=== PATIENT | male | born 1965 | race African-American/Black ===

== ENCOUNTER 2017-08-10 17:43 | Emergency (ER) | payer OTHER ==
[2017-08-10 17:54] VITALS: TEMP 37.2
[2017-08-10] MEDS ORDERED: ALBUT/IPRATROP 3MG/0.5MG NEB 3 ML VIAL INH STA (17:55)
--- NOTE | 2017-08-10 18:03 | EMERGENCY ROOM VISIT NOTE ---
History Report prepared by Shankar: Alis Covington Under the Supervision of: Dr. Berlin Fowler D.O. First contact with patient: 17:51 Chief Complaint: CHEST PAIN Stated Complaint: CHEST PAIN History of Present Illness The patient is a 52 year old male who presents to the Emergency Room with complaints of persistent chest pain that started prior to arrival. He is accompanied by a senior commercial loan officer from the senior living where he resides. He reports he was asleep and woke up with sharp left sided chest pain. Deep inspiration worsens his discomfort. He has also experienced a productive cough. He denies any hemoptysis. The patient states he experienced flu symptoms several weeks ago. He denies any recent fevers or chills. He has experienced no unusual leg pain or swelling. He is a current smoker. He states the only daily medications he takes are for a history of diabetes. 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 A total of 10 systems reviewed and were otherwise negative. Past Medical & Surgical Medical Problems: (1) Diabetes mellitus Social History Smoking Status: Current Every Day Smoker Alcohol Use: none Drug Use: none Marital Status: single Housing Status: other (Longterm) Occupation Status: unemployed Current/Historical Medications Scheduled Aspirin (Aspirin Ec), 81 MG PO DAILY Enalapril (Vasotec), 10 MG PO DAILY Insulin Glargine (Lantus), 30 UNITS SC HS Insulin Human Regular (Humulin R), 1 DOSE SC BID Metformin Hcl (Glucophage), 1,000 MG PO BID Mirtazapine (Remeron), 30 MG PO HS Pravastatin Sodium (Pravachol), 40 MG PO QPM Sertraline (Zoloft), 200 MG PO HS Allergies Coded Allergies: No Known Allergies (Unverified , 08/10/17) Physical Exam Vital Signs Date Time Temp Pulse Resp B/P (MAP) Pulse Ox O2 Delivery O2 Flow Rate FiO2 08/10/17 21:43 78 20 132/81 98 Room Air 08/10/17 20:24 95 Nasal Cannula 2.0 08/10/17 20:15 79 20 129/55 89 Room Air 08/10/17 19:33 85 20 136/65 93 Room Air 08/10/17 18:46 89 20 137/68 95 Room Air 08/10/17 18:17 83 08/10/17 17:54 37.2 87 20 94/65 94 Room Air 08/10/17 17:54 94 Room Air 08/10/17 17:54 94 Room Air Physical Exam GENERAL: Patient is awake, alert, somewhat anxious and uncomfortable appearing EYES: The conjunctivae are clear. The pupils are round and reactive. EARS, NOSE, MOUTH AND THROAT: The nose is without any evidence of any deformity. Mucous membranes are moist tongue is midline NECK: The neck is nontender and supple. RESPIRATORY: Splinting respirations noted, no definite rails, rhonchi or wheezing. CARDIOVASCULAR: Regular rate and rhythm noted there no murmurs rubs or gallops normal S1 normal S2 GASTROINTESTINAL: The abdomen is soft. Bowel sounds are present in all quadrants. Abdomen is nontender MUSCULOSKELETAL/EXTREMITIES: Patient was tender over the left lateral rib cage, no crepitus was appreciated. There is no evidence of gross deformity full range of motion is noted in the hips and shoulders SKIN: There is no obvious evidence of any rash. There are no petechiae, pallor or cyanosis noted. NEUROLOGIC: Patient is awake alert and oriented x3 Medical Decision & Procedures ER Provider Diagnostic Interpretation: Radiology results as stated below per my review and radiologist interpretation: CHEST ONE VIEW PORTABLE HISTORY: 52 years-old Male CHEST PAIN acute atypical chest pain COMPARISON: None available TECHNIQUE: Portable upright AP view of the chest FINDINGS: Cardiac silhouette is moderately enlarged. No pneumothorax. Pulmonary vascular congestion is noted with hazy perihilar and bibasilar opacities. No large pleural effusion. Bones of the chest appear grossly intact. Degenerative changes are seen within the shoulders. IMPRESSION: Cardiomegaly with hazy perihilar and bibasilar opacities suggesting asymmetric pulmonary edema or pneumonia. The above report was generated using voice recognition software. It may contain grammatical, syntax or spelling errors. Electronically signed by: Francisco Gonzalez M.D. 08/10/2017 6:29 PM Radiology results as stated below per my review and radiologist interpretation: (CHEST FOR PE) ANGIO WITH CT DOSE: 629.35 mGy.cm HISTORY: 52 years-old Male presents with acute atypical chest pain TECHNIQUE: Multiple CTA images of the chest were obtained after the intravenous administration of 94 ml Optiray 320. Coronal and sagittal MIPS were obtained from the axial data set and were submitted for review. A dose lowering technique was utilized adhering to the principles of ALARA. COMPARISON: Chest radiograph of same day. FINDINGS: CTA: Mild multichamber cardiac enlargement. Coronary arterial calcifications are noted. Thoracic aorta is normal in caliber without aneurysm or dissection. Note is made of a bovine aortic arch. Mild mixed plaquing of the aorta. There is suboptimal opacification of the pulmonary arterial tree secondary to contrast bolus timing. The lobar, segmental and subsegmental branches are not well seen. Study is also limited secondary to respiratory motion. No central pulmonary embolus identified. CT CHEST: No dominant thyroid nodule. Mild mediastinal and hilar adenopathy. Mildly prominent AP window lymph node measures 2.1 x 0.9 cm. Enlarged right hilar lymph node measures 1.5 x 1.3 cm. Mildly prominent subcarinal lymph node measures 1.9 x 0.9 cm. There is no pneumothorax or pleural effusion. Patchy consolidative and groundglass opacities are present within the left upper lobe, lingula and right middle lobe. Dependent subsegmental groundglass and linear consolidative opacities of the lung bases favor atelectasis. Centrilobular opacities also noted within these distributions. Pleural-based 5 mm solid pulmonary nodule seen within the right upper lobe, image 196 series 4. Mild centrilobular emphysema with an upper lung zone predominant distribution. Central airways are patent. Mild layering secretions are noted within the bronchus intermedius. Indeterminate 9 mm soft tissue attenuating lesion of the right adrenal gland. Mild symmetric bilateral gynecomastia. Bones appear intact. Mild endplate spurring of the spine. IMPRESSION: 1. Limited evaluation of the pulmonary arterial tree as above without evidence of central pulmonary embolus. No acute aortic pathology. 2. Patchy centrilobular, consolidative and groundglass opacities throughout the left upper lobe, lingula and right middle lobe suggest multifocal pneumonia. Opacities of the lung bases favor atelectasis. Follow-up imaging to document resolution is recommended. 3. Mild mediastinal and hilar adenopathy, likely reactive. 4. Mild upper lobe predominant centrilobular emphysema. 5. Indeterminate 9 mm soft tissue attenuating lesion of the right adrenal gland. 6. Pleural based 5 mm noncalcified pulmonary nodule of the right upper lobe. Please refer to below summary of Fleischner criteria recommendations for follow-up of incidental CT nodules (Belen Thapa, Guidelines for management of small pulmonary nodules detected on CT scans: A statement from the Fleischner Society, Radiology 237: [phone].) SOLID NODULES Solitary nodule size: <6 mm * Low risk patients: no follow-up needed * high risk patients: optional CT at 12 months Note: newly detected indeterminate nodule in persons 35 years of age or older. * Low risk patients: minimal or absent history of smoking and/or other known risk factors * high risk patients: history of smoking or of other known risk factors (e.g. first degree relative with lung cancer, or exposure to asbestos, radon, uranium) * if a nodule up to 8 mm is partly solid or is ground glass further follow-up is required after 24 months to exclude possible slow growing adenocarcinoma (HERMINIO) The above report was generated using voice recognition software. It may contain grammatical, syntax or spelling errors. Electronically signed by: Francisco Gonzalez M.D. 08/10/2017 8:31 PM Laboratory Results 08/10/17 18:00 Red Blood Count 4.57, Mean Corpuscular Volume 83.2, Mean Corpuscular Hemoglobin 29.1, Mean Corpuscular Hemoglobin Concent 35.0, Mean Platelet Volume 10.7, Neutrophils (%) (Auto) 73.8, Lymphocytes (%) (Auto) 11.6, Monocytes (%) (Auto) 12.9, Eosinophils (%) (Auto) 1.2, Basophils (%) (Auto) 0.2, Neutrophils # (Auto ) 8.71, Lymphocytes # (Auto) 1.37, Monocytes # (Auto) 1.52, Eosinophils # (Auto ) 0.14, Basophils # (Auto) 0.02 08/10/17 18:00 Test 08/10/17 18:00 08/10/17 21:09 08/10/17 21:55 White Blood Count 11.80 K/uL (4.8-10.8) Red Blood Count 4.57 M/uL (4.7-6.1) Hemoglobin 13.3 g/dL (14.0-18.0) Hematocrit 38.0 % (42-52) Mean Corpuscular Volume 83.2 fL (80-100) Mean Corpuscular Hemoglobin 29.1 pg (25-34) Mean Corpuscular Hemoglobin Concent 35.0 g/dl (32-36) Platelet Count 267 K/uL (130-400) Mean Platelet Volume 10.7 fL (7.4-10.4) Neutrophils (%) (Auto) 73.8 % Lymphocytes (%) (Auto) 11.6 % Monocytes (%) (Auto) 12.9 % Eosinophils (%) (Auto) 1.2 % Basophils (%) (Auto) 0.2 % Neutrophils # (Auto) 8.71 K/uL (1.4-6.5) Lymphocytes # (Auto) 1.37 K/uL (1.2-3.4) Monocytes # (Auto) 1.52 K/uL (0.11-0.59) Eosinophils # (Auto) 0.14 K/uL (0-0.5) Basophils # (Auto) 0.02 K/uL (0-0.2) RDW Standard Deviation 39.0 fL (36.4-46.3) RDW Coefficient of Variation 12.9 % (11.5-14.5) Immature Granulocyte % (Auto) 0.3 % Immature Granulocyte # (Auto) 0.04 K/uL (0.00-0.02) Prothrombin Time 10.9 SECONDS (9.0-12.0) Prothromb Time International Ratio 1.0 (0.9-1.1) Activated Partial Thromboplast Time 29.9 SECONDS (21.0-31.0) Partial Thromboplastin Ratio 1.2 Anion Gap 7.0 mmol/L (3-11) Estimated GFR () 74.6 Estimated GFR (Non- 64.4 BUN/Creatinine Ratio 12.0 (10-20) Calcium Level 9.1 mg/dl (8.5-10.1) Total Bilirubin 0.4 mg/dl (0.2-1) Direct Bilirubin 0.1 mg/dl (0-0.2) Aspartate Amino Transf (AST/SGOT) 25 U/L (15-37) Alanine Aminotransferase (ALT/SGPT) 38 U/L (12-78) Alkaline Phosphatase 95 U/L (45-117) Total Creatine Kinase 633 U/L (39-308) Creatine Kinase MB 2.6 ng/ml (0.5-3.6) Creatine Kinase MB Ratio 0.4 (0-3.0) Pro-B-Type Natriuretic Peptide 54 pg/ml (0-900) Total Protein 8.3 gm/dl (6.4-8.2) Albumin 3.1 gm/dl (3.4-5.0) Lipase 130 U/L (73-393) Bedside Lactic Acid Venous 1.21 mmol/L (0.90-1.70) Laboratory results per my review. Medications Administered Medications (Trade) Dose Ordered Sig/Sienna Route Start Time Stop Time Status Last Admin Dose Admin Fentanyl Citrate (Fentanyl Inj) 50 mcg Q15M PRN IV 08/10/17 18:00 08/24/17 17:59 08/10/17 19:39 50 MCG Albuterol/ Ipratropium (Duoneb) 3 ml NOW STAT INH 08/10/17 17:55 08/10/17 17:56 DC 08/10/17 18:33 3 ML Levofloxacin (Levaquin / D5W) 750 mg NOW ONCE IV 08/10/17 20:45 08/10/17 20:46 DC 08/10/17 21:14 750 MG Sodium Chloride 1,000 ml @ 999 mls/hr Q1H1M STAT IV 08/10/17 20:35 08/10/17 21:35 DC 08/10/17 21:14 999 MLS/HR ECG Indication: chest pain Rate (beats per minute): 84 Rhythm: normal sinus Findings: no ectopy, other (no acute ST segments) ED Course 1753: The patient was evaluated in room B10. A complete history and physical examination were performed. 1754: Duoneb 2 ml INH. 1800: Fentanyl 50 mcg IV. 2034: NSS 1000 ml @ 999 mls/hr IV. 2039: I reevaluated the patient. He is resting comfortably. I discussed my recommendation he remain in the hospital for further evaluation and management and he verbalized complete understanding and agreement. 2044: Levaquin 750 mg IV. 2044: I discussed the patients case with Dr. Holman, [facility] Hospitalist. The patient will be further evaluated. Medical Decision Prior records/ancillary studies reviewed. Triage Nursing notes reviewed. The patient's history was concerning for chest pain. Differential diagnosis: Etiologies such as cardiac ischemia, aortic dissection, pulmonary embolism, pneumonia, pneumothorax, musculoskeletal, infections, pericarditis, myocarditis , esophageal rupture, gastrointestinal, as well as others were entertained. The patient is a 52-year-old male who presented to emergency department for an evaluation of chest pain. The patient had reproducible left-sided chest pain. He states that he had upper respiratory symptoms last week including cough and malaise. The patient had reproducible left-sided pain I thought initially this could be related to chest wall pain from his recent upper rest for infection. Chest x-ray was consistent with possible pneumonia versus pulmonary edema. For this reason further laboratory and radiographic studies were obtained including an EKG as well as CT the chest. CT was obtained to rule out pulmonary embolism but revealed bilateral pneumonia. Given the patient's past medical history as well as his smoking history I felt that he may do better with IV antibiotics and inpatient management. The patient was treated with IV antibiotics and IV pain medication. I discussed the patient's laboratory and radiographic studies with him. I discussed his case with the on-call [facility] hospitalist. They have agreed to evaluate the patient in the emergency department for further management and disposition. Medication Reconcilliation Current Medication List: was personally reviewed by me Blood Pressure Screening Patient's blood pressure: Normal blood pressure Consults Time Called: 2041 Consulting Physician: Dr. Holman [facility] Hospitalist Returned Call: 2044 I discussed the patients case with Dr. Holman [facility] Hospitalist. The patient will be further evaluated. Impression Primary Impression: Pneumonia Additional Impressions: Hypoxia Chest pain Scribe Attestation The scribe's documentation has been prepared under my direction and personally reviewed by me in its entirety. I confirm that the note above accurately reflects all work, treatment, procedures, and medical decision making performed by me. Departure Information Dispostion Being Evaluated By Hospitalist Referrals No Doctor, Assigned (PCP) Patient Instructions My [facility] Health Problem Qualifiers Primary Impression: Pneumonia Pneumonia type: due to unspecified organism Laterality: bilateral Lung location: unspecified part of lung Qualified Codes: J18.9 - Pneumonia, unspecified organism Additional Impressions: Chest pain Chest pain type: unspecified Qualified Codes: R07.9 - Chest pain, unspecified
--- NOTE | 2017-08-10 18:30 | DIAGNOSTIC IMAGING REPORT ---
CHEST ONE VIEW PORTABLE HISTORY: 52 years-old Male CHEST PAIN acute atypical chest pain COMPARISON: None available TECHNIQUE: Portable upright AP view of the chest FINDINGS: Cardiac silhouette is moderately enlarged. No pneumothorax. Pulmonary vascular congestion is noted with hazy perihilar and bibasilar opacities. No large pleural effusion. Bones of the chest appear grossly intact. Degenerative changes are seen within the shoulders. IMPRESSION: Cardiomegaly with hazy perihilar and bibasilar opacities suggesting asymmetric pulmonary edema or pneumonia. The above report was generated using voice recognition software. It may contain grammatical, syntax or spelling errors. Electronically signed by: Francisco Gonzalez M.D. 08/10/2017 6:29 PM Dictated Date/Time: 08/10/2017 6:25 PM
[2017-08-10] MEDS: FENTANYL CITRATE INJ 50 MCG/1 ML 2 ML VIAL IV PRN ×2 (18:34→19:39)
[2017-08-10 18:42] LABS: BASO % 0.2 %; BASO ABS # 0.02 K/uL (0-0.2); COMPLETE YES; EOS % 1.2 %; IG% 0.3 %; LYMPH % 11.6 %; LYMPH ABS # 1.37 K/uL (1.2-3.4); MEAN CELL VOLUME 83.2 fL (80-100); MEAN CORPUSCULAR HEMOGLOBIN 29.1 pg (25-34); MEAN PLATELET VOLUME 10.7 fL (7.4-10.4); MONO % 12.9 %; NEUT % 73.8 %; PLATELET COUNT 267 K/uL (130-400); RED BLOOD COUNT 4.57 M/uL (4.7-6.1)
[2017-08-10] MEDS ORDERED: SERT-234 PO (18:44)
[2017-08-10] MEDS ORDERED: INSHRIE SC (18:44)
[2017-08-10] MEDS ORDERED: ASPI81TA28 PO (18:44)
[2017-08-10] MEDS ORDERED: INSDGI SC (18:44)
[2017-08-10] MEDS ORDERED: ENAL10TA88 PO (18:47)
[2017-08-10] MEDS ORDERED: MIRT30TA3 PO (18:49)
[2017-08-10] MEDS ORDERED: METF-384 PO (18:49)
[2017-08-10] MEDS ORDERED: PRAV40TA PO (18:49)
[2017-08-10 18:52] LABS: ALT/SGPT 38 U/L (12-78); BLOOD UREA NITROGEN 15 mg/dl (7-18); CALCIUM 9.1 mg/dl (8.5-10.1); CARBON DIOXIDE 24 mmol/L (21-32); CHLORIDE 102 mmol/L (98-107); CREATININE 1.28 mg/dl (0.60-1.40); GLUCOSE 252 mg/dl (70-99); PARTIAL THROMBOPLASTIN RATIO 1.2; POTASSIUM 4.4 mmol/L (3.5-5.1); PROTHROMBIN TIME (PATIENT) 10.9 SECONDS (9.0-12.0); SODIUM 133 mmol/L (136-145)
[2017-08-10 18:57] LABS: ALKALINE PHOSPHATASE 95 U/L (45-117); AST/SGOT 25 U/L (15-37); CKMB/CK RATIO 0.4 (0-3.0)
[2017-08-10] MEDS ORDERED: OPTIRAY 320 IV PRN (20:00)
[2017-08-10 20:24] VITALS: O2SAT 95
--- NOTE | 2017-08-10 20:32 | DIAGNOSTIC IMAGING REPORT ---
(CHEST FOR PE) ANGIO WITH CT DOSE: 629.35 mGy.cm HISTORY: 52 years-old Male presents with acute atypical chest pain TECHNIQUE: Multiple CTA images of the chest were obtained after the intravenous administration of 94 ml Optiray 320. Coronal and sagittal MIPS were obtained from the axial data set and were submitted for review. A dose lowering technique was utilized adhering to the principles of ALARA. COMPARISON: Chest radiograph of same day. FINDINGS: CTA: Mild multichamber cardiac enlargement. Coronary arterial calcifications are noted. Thoracic aorta is normal in caliber without aneurysm or dissection. Note is made of a bovine aortic arch. Mild mixed plaquing of the aorta. There is suboptimal opacification of the pulmonary arterial tree secondary to contrast bolus timing. The lobar, segmental and subsegmental branches are not well seen. Study is also limited secondary to respiratory motion. No central pulmonary embolus identified. CT CHEST: No dominant thyroid nodule. Mild mediastinal and hilar adenopathy. Mildly prominent AP window lymph node measures 2.1 x 0.9 cm. Enlarged right hilar lymph node measures 1.5 x 1.3 cm. Mildly prominent subcarinal lymph node measures 1.9 x 0.9 cm. There is no pneumothorax or pleural effusion. Patchy consolidative and groundglass opacities are present within the left upper lobe, lingula and right middle lobe. Dependent subsegmental groundglass and linear consolidative opacities of the lung bases favor atelectasis. Centrilobular opacities also noted within these distributions. Pleural-based 5 mm solid pulmonary nodule seen within the right upper lobe, image 196 series 4. Mild centrilobular emphysema with an upper lung zone predominant distribution. Central airways are patent. Mild layering secretions are noted within the bronchus intermedius. Indeterminate 9 mm soft tissue attenuating lesion of the right adrenal gland. Mild symmetric bilateral gynecomastia. Bones appear intact. Mild endplate spurring of the spine. IMPRESSION: 1. Limited evaluation of the pulmonary arterial tree as above without evidence of central pulmonary embolus. No acute aortic pathology. 2. Patchy centrilobular, consolidative and groundglass opacities throughout the left upper lobe, lingula and right middle lobe suggest multifocal pneumonia. Opacities of the lung bases favor atelectasis. Follow-up imaging to document resolution is recommended. 3. Mild mediastinal and hilar adenopathy, likely reactive. 4. Mild upper lobe predominant centrilobular emphysema. 5. Indeterminate 9 mm soft tissue attenuating lesion of the right adrenal gland. 6. Pleural based 5 mm noncalcified pulmonary nodule of the right upper lobe. Please refer to below summary of Fleischner criteria recommendations for follow-up of incidental CT nodules (Belen Thapa, Guidelines for management of small pulmonary nodules detected on CT scans: A statement from the Fleischner Society, Radiology 237: [phone].) SOLID NODULES Solitary nodule size: <6 mm * Low risk patients: no follow-up needed * high risk patients: optional CT at 12 months Note: newly detected indeterminate nodule in persons 35 years of age or older. * Low risk patients: minimal or absent history of smoking and/or other known risk factors * high risk patients: history of smoking or of other known risk factors (e.g. first degree relative with lung cancer, or exposure to asbestos, radon, uranium) * if a nodule up to 8 mm is partly solid or is ground glass further follow-up is required after 24 months to exclude possible slow growing adenocarcinoma (HERMINIO) The above report was generated using voice recognition software. It may contain grammatical, syntax or spelling errors. Electronically signed by: Francisco Gonzalez M.D. 08/10/2017 8:31 PM Dictated Date/Time: 08/10/2017 8:21 PM
[2017-08-10] MEDS ORDERED: SODIUM CHLORIDE 0.9% 1000ML 1,000 ML IV STA (20:35)
[2017-08-10] MEDS ORDERED: LEVAQUIN 750MG / 150ML D5W IV ONE (20:45)
[2017-08-10] MEDS ORDERED: KETOROLAC TROMETHAMINE 30 MG/ML VIAL IV STA (21:40)
--- NOTE | 2017-08-10 22:09 | Medical Consult ---
Consultation Date of Consultation: Aug 10, 2017. Attending Physician: History of Present Illness 52 y/o M Hx DM II, COPD on recent imaging (denies diagnosis), smoker. The pt presents from an incarceration facility primarily with pleuritic L lateral CP. He had been c/o a persistent cough throughout the day as well. He denies fevers , n/v, diaphoresis or radiation of the pain. The pt's 02 sat has ranged from 89 -96% on RA. He does not display tachypnea or tachycardia. An elevated D-dimer was noted on initial labs prompting CTA evaluation. No PE was present, however, a multifocal pneumonia was described. Past Medical/Surgical History 1) COPD - undiagnosed - emphysema is seen on current imaging 2) DM II Family History Reviewed - noncontributory Social History Smoking Status: Current Every Day Smoker Drug Use: none Marital Status: single Housing Status: other (Care Home) Occupation Status: unemployed Allergies Coded Allergies: No Known Allergies (Unverified , 08/10/17) Current Inpatient Medications Current Inpatient Medications Medications (Trade) Dose Ordered Sig/Sienna Route Start Time Stop Time Status Last Admin Dose Admin Fentanyl Citrate (Fentanyl Inj) 50 mcg Q15M PRN IV 08/10/17 18:00 08/24/17 17:59 08/10/17 19:39 50 MCG Ioversol (Optiray 320) 100 ml UD PRN IV 08/10/17 20:00 08/14/17 19:59 Review of Systems Constitutional: No fever, No chills, No sweats Eyes: No worsening of vision ENT: No hearing loss Respiratory: No cough, No sputum, No wheezing Cardiovascular: + chest pain (pleuritic - chest wall) Abdomen: No pain, No nausea, No vomiting Genitourinary - Male: No hematuria, No dysuria Neurologic: No memory loss, No paralysis, No weakness Psychiatric: No depression symptoms Endocrine: No fatigue Hematologic / Lymphatic: No abnormal bleeding/bruising Integumentary: No rash Allergic / Immunologic: No environmental allergies Physical Exam Date Time Temp Pulse Resp B/P (MAP) Pulse Ox O2 Delivery O2 Flow Rate FiO2 08/10/17 20:24 95 Nasal Cannula 2.0 08/10/17 20:15 79 20 129/55 89 Room Air 08/10/17 19:33 85 20 136/65 93 Room Air 08/10/17 18:46 89 20 137/68 95 Room Air 08/10/17 18:17 83 08/10/17 17:54 37.2 87 20 94/65 94 Room Air 08/10/17 17:54 94 Room Air 08/10/17 17:54 94 Room Air General Appearance: WD/WN, no apparent distress Head: normocephalic Eyes: normal inspection ENT: normal ENT inspection, pharynx normal Neck: supple, no JVD Respiratory/Chest: lungs clear, normal breath sounds, + pertinent finding ( Chest is tender over L ribs) Cardiovascular: regular rate, rhythm, no edema, no gallop Abdomen/GI: normal bowel sounds, non tender, soft Back: normal inspection, no CVA tenderness Extremities/Musculoskelatal: normal inspection, no calf tenderness, normal capillary refill 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, no motor/sensory deficits, alert Skin: normal color, warm/dry Laboratory Results Last 24 Hours Test 08/10/17 18:00 08/10/17 21:09 White Blood Count 11.80 K/uL Red Blood Count 4.57 M/uL Hemoglobin 13.3 g/dL Hematocrit 38.0 % Mean Corpuscular Volume 83.2 fL Mean Corpuscular Hemoglobin 29.1 pg Mean Corpuscular Hemoglobin Concent 35.0 g/dl Platelet Count 267 K/uL Mean Platelet Volume 10.7 fL Neutrophils (%) (Auto) 73.8 % Lymphocytes (%) (Auto) 11.6 % Monocytes (%) (Auto) 12.9 % Eosinophils (%) (Auto) 1.2 % Basophils (%) (Auto) 0.2 % Neutrophils # (Auto) 8.71 K/uL Lymphocytes # (Auto) 1.37 K/uL Monocytes # (Auto) 1.52 K/uL Eosinophils # (Auto) 0.14 K/uL Basophils # (Auto) 0.02 K/uL RDW Standard Deviation 39.0 fL RDW Coefficient of Variation 12.9 % Immature Granulocyte % (Auto) 0.3 % Immature Granulocyte # (Auto) 0.04 K/uL Prothrombin Time 10.9 SECONDS Prothromb Time International Ratio 1.0 Activated Partial Thromboplast Time 29.9 SECONDS Partial Thromboplastin Ratio 1.2 Sodium Level 133 mmol/L Potassium Level 4.4 mmol/L Chloride Level 102 mmol/L Carbon Dioxide Level 24 mmol/L Anion Gap 7.0 mmol/L Blood Urea Nitrogen 15 mg/dl Creatinine 1.28 mg/dl Estimated GFR () 74.6 Estimated GFR (Non- 64.4 BUN/Creatinine Ratio 12.0 Random Glucose 252 mg/dl Calcium Level 9.1 mg/dl Total Bilirubin 0.4 mg/dl Direct Bilirubin 0.1 mg/dl Aspartate Amino Transf (AST/SGOT) 25 U/L Alanine Aminotransferase (ALT/SGPT) 38 U/L Alkaline Phosphatase 95 U/L Total Creatine Kinase 633 U/L Creatine Kinase MB 2.6 ng/ml Creatine Kinase MB Ratio 0.4 Pro-B-Type Natriuretic Peptide 54 pg/ml Total Protein 8.3 gm/dl Albumin 3.1 gm/dl Lipase 130 U/L Bedside Lactic Acid Venous 1.21 mmol/L Assessment & Plan 52 y/o M Hx DM II, COPD on recent imaging (denies diagnosis), smoker. The pt presents from an incarceration facility primarily with pleuritic L lateral CP. He had been c/o a persistent cough throughout the day as well. He denies fevers , n/v, diaphoresis or radiation of the pain. The pt's 02 sat has ranged from 89 -96% on RA. He does not display tachypnea or tachycardia. An elevated D-dimer was noted on initial labs prompting CTA evaluation. No PE was present, however, a multifocal pneumonia was described. The pt displays an adequate oxygen saturation, normal heart rate and does not exhibit tachypnea. He does not meat the CRB - 65 or PORT criteria for admission presently. Regarding his PNM, he can therefore be DCd with outpt antibiotics, having received a dose of IV in the ER. We would recommend Combivent or albuterol in addition. Regarding his CP - this is largely chest wall pain although we will repeat a trop, antiinflammatories would be of benefit. COPD is noted on imaging which is likely early - he continues to smoke 2 pack daily and may have difficulty with cessation in [facility] - advised to avoid during the recovery process No change has been made to his diabetic regimen Abive discussed with ER attending and pt Total time for this consult including review of labs, meds, imaging, EKG - 37 min
[2017-08-11] MEDS ORDERED: PRVHFAIN INH (00:22)
[2017-08-11] MEDS ORDERED: LEVO1TAB35 PO (00:22)
[2017-08-11] MEDS ORDERED: ACETAMINOPHEN 500 MG TAB PO STA (00:32)
[2017-08-11 00:35] VITALS: BP 149/100; PULSE 79; O2SAT 94
--- NOTE | 2017-08-11 04:17 | EMERGENCY ROOM VISIT NOTE ---
ED Visit Note 52 yr old male brought to my attention by Charge Nurse and Dr Homlan asking for discharge paperwork. Reviewed case with Dr Holman and I reviewed chart, including labs and imaging. Patient with chest pain, cough, shob with history DM arrived and found to have multifocal PNA. Already with abx. Dr Holman consulted and feels outpatient/correction treatment indicated and requested Levaquin rx and Albuterol rx for patient. Patient with some continued discomfort for which Tylenol given. Repeat Trop has been negative thus this is not ACS, especially given has been found to have Pneumonia. I have discharged the patient per hospitalist with review of symptoms requiring return. I also discussed nodules seen on CT and need for these to be further evaluation, as well as having put this in discharge instructions.
[2017-08-13 14:52] LABS: POINT OF CARE TROPONIN I < 0.030 ng/ml (0-0.045)
== END 2017-08-11 00:40 | disposition home or self-care (01) ==
LOC: C.EDB 17:45
DX: J18.9 Pneumonia, unspecified organism (principal); R09.02 Hypoxemia; R07.9 Chest pain, unspecified; E11.9 Type 2 diabetes mellitus without complications; J44.9 Chronic obstructive pulmonary disease, unspecified; F17.210 Nicotine dependence, cigarettes, uncomplicated; Z79.82 Long term (current) use of aspirin; Z79.4 Long term (current) use of insulin; Z79.899 Other long term (current) drug therapy